=== PATIENT | female | born 1975 ===

== ENCOUNTER 2024-08-09 06:23 | Day surgery (SDC) | payer OTHER, SELFPAY | END 2024-08-09 14:08 | disposition home or self-care (01) | LOC: GI 06:23 | PROVIDERS: ATTENDING PHYSICIAN Internal Medicine Gastroenterology | DX: K92.1 Melena (principal); K64.8 Other hemorrhoids; K31.89 Other diseases of stomach and duodenum | CPT/HCPCS: 45378; 43239; 88305; 88342 ==